=== PATIENT | male | born 1995 | race Two or more races ===

== ENCOUNTER 2022-10-09 00:34 | Emergency (ER) | payer SELFPAY ==
[~2022-10-09] VITALS: Ht 180.3 cm; Wt 102.1 kg
[2022-10-09 00:55] VITALS: BP 151/84
--- NOTE | 2022-10-09 00:57 | NUR ---
IV removed. Catheter intact and site benign. Pressure and 4x4 applied to site. No bleeding noted.Patient discharged to home in stable condition. Written and verbal after care instructions given. Patient verbalizes understanding of instruction.
--- NOTE | 2022-10-09 01:00 | NUR ---
PATIENT DOES NOT WANT TO BE SEEN BY MD, AWARE. LEFT WITHOUT BEING SEEN
== END 2022-10-09 01:04 | disposition left against medical advice (07) ==
LOC: ER 00:46
DX: R41.82 Altered mental status, unspecified (principal); T50.901A Poisoning by unspecified drugs, medicaments and biological substances, accidental (unintentional), initial encounter; Z53.21 Procedure and treatment not carried out due to patient leaving prior to being seen by health care provider; Y92.89 Other specified places as the place of occurrence of the external cause